=== PATIENT | male | born 1970 | race Caucasian/White ===

== ENCOUNTER 2021-02-24 13:45 | Emergency (ER) | payer BC ==
[2021-02-24] MEDS ORDERED: Ibuprofen 200 MG TAB ONE (14:10)
[2021-02-25 09:55] LABS: SARS-CoV-2 PCR by NAA Not Detected (NotDetected)
== END 2021-02-24 14:20 | disposition home or self-care (01) ==
LOC: ERS 13:45
DX: R50.9 Fever, unspecified (principal); Z20.822 Contact with and (suspected) exposure to COVID-19; Z87.891 Personal history of nicotine dependence
CPT/HCPCS: 99283; U0003; U0005